=== PATIENT | male | born 1990 | race Caucasian/White ===

== ENCOUNTER → 2017-02-04 | Outpatient (CLI) | payer SELFPAY ==
[~2017-02-04] MED LIST: PRED10TA2 PO
--- NOTE | 2017-02-04 19:58 | REP ---
Lumbar spine five views: Comparison is 05/01/2004. Vertebral body heights, interspacing alignment are normal and unchanged. There is no spondylolysis or spondylolisthesis. The pedicles, facets and sacroiliac articulations are unremarkable and unchanged. Impression: Negative lumbar spine plain film study. No interval change. Signed by Manny Broderick MD 02/04/2017 07:50 P
== END ==
LOC: M WUC 19:04
PROVIDERS: ATTEND Physician Assistant
DX: M54.5 Low back pain (principal)

== ENCOUNTER 2017-03-07 13:00 | Emergency (ER) | payer SELFPAY ==
[~2017-03-07] VITALS: Ht 177.8 cm; Wt 88.6 kg
[2017-03-07] MEDS ORDERED: PRED10TA2 PO (15:25)
[2017-03-07] MEDS ORDERED: predniSONE 20 MG TAB PO ONE (15:30)
[2017-03-07] MEDS ORDERED: diphenhydrAMINE 50 MG CAP PO ONE (15:30)
[2017-03-07 15:33] VITALS: BP 136/78
== END 2017-03-07 15:56 | disposition home or self-care (01) ==
LOC: M ED 13:00
DX: R21 Rash and other nonspecific skin eruption (principal); L50.9 Urticaria, unspecified; T78.40XA Allergy, unspecified, initial encounter; F17.210 Nicotine dependence, cigarettes, uncomplicated

== ENCOUNTER 2017-08-25 07:42 | Emergency (ER) | payer SELFPAY ==
[2017-08-25 08:50] LABS: INFLUENZA A AMPLIFICATION NEGATIVE (NEGATIVE); INFLUENZA B AMPLIFICATION NEGATIVE (NEGATIVE)
== END 2017-08-25 09:26 | disposition home or self-care (01) ==
LOC: M ED 07:42
DX: J02.9 Acute pharyngitis, unspecified (principal); Z88.5 Allergy status to narcotic agent; F17.210 Nicotine dependence, cigarettes, uncomplicated
CPT/HCPCS: 87502

== ENCOUNTER 2018-05-11 02:46 | Emergency (ER) | payer SELFPAY ==
[2018-05-11] MEDS: BENZONATATE 100 MG CAP PO (04:39)
[2018-05-11] MEDS: predniSONE 20 MG TAB PO (04:40)
[2018-05-11] MEDS: ALBUTEROL 90 MCG/ACT 8GM HFA INHALER INH (04:47)
== END 2018-05-11 04:49 | disposition home or self-care (01) ==
LOC: M ED 02:46
DX: J20.8 Acute bronchitis due to other specified organisms (principal); Z88.5 Allergy status to narcotic agent; F17.210 Nicotine dependence, cigarettes, uncomplicated
CPT/HCPCS: 99282